=== PATIENT | female | born 1965 | race Caucasian/White ===

== ENCOUNTER 2016-12-26 21:32 | Emergency (ER) | payer OTHER ==
[~2016-12-26] VITALS: Ht 165.1 cm; Wt 73.0 kg
[~2016-12-26 21:32] MED LIST: ADAL40KI SQ; CARI350T PO; CITA20TA11 PO; CYCL100C23 PO; DIAZ10TA3 PO; DICL1TAB5 PO; LORA1TAB PO; METH2.5T PO; NICO1PAT16 TD; OXYC-245 PO; PREG150C PO; ZLP5T PO
[2016-12-26 21:47] VITALS: BP 172/89; PULSE 61; RESP 18; O2SAT 100
--- NOTE | 2016-12-26 22:10 | ED.REPORT ---
HPI-General Illness Date of Service Dec 26, 2016 ED Provider: Dr. Og Amaya M.D. The patient is a 51 year old female with a medical history including fibromyalgia, psoriatic arthritis, and guttate psoriasis who presents to the ED with left lower extremity redness and swelling onset two days ago. The patient also reports diffuse itchy and painful psoriasis, affecting her left leg as well as other areas of her body. The patient's psoriasis was controlled for many years with treatments including Humira and methotrexate prescribed by her retirement manager but she recently lost this doctor as well as her PCP and is in the process of re-establishing care. She is not currently on any prescriptions for psoriasis. The patient denies other symptoms at this time. Nursing Notes Stated Complaint: LEFT LEG EDEMA AND PSORIASIS Chief Complaint: General Complaint Nursing Notes Reviewed: Yes Allergies: Coded Allergies: codeine (Verified Allergy, Severe, 12/14/14) Scheduled Adalimumab (Humira) 40 Mg/0.8 Ml Kit 40 MG SQ every 2 weeks Carisoprodol (Soma) 350 Mg Tablet 350 MG PO TID Cephalexin (Keflex) 500 Mg Capsule 500 MG PO QID Ceramides 1,3,6-11 (Cerave) 453 Gm Cream..g. 453 GM TP BID Citalopram (Citalopram) 20 Mg Tablet 30 MG PO DAILY Clobetasol Propionate (Clobetasol Propionate) 50 Ml Solution 50 ML TP BID Cyclosporine, Modified (Cyclosporine Modified) 100 Mg Capsule 100 MG PO AM Cyclosporine, Modified (Cyclosporine Modified) 100 Mg Capsule 200 MG PO HS Diclofenac/Misoprostol 75-0.2 mg (Arthrotec 75-0.2 mg) 1 Each Tab.ir.dr 1 EACH PO BID Hydrocortisone (Hydrocortisone) 2.5 % Cream.appl 30 GM RC TID Loratadine (Claritin) 10 Mg Capsule 10 MG PO DAILY Methotrexate Sodium (Methotrexate) 2.5 Mg Tablet 10 MG PO bid weekly Nicotine 21 mg/24 hr Patch (Nicotine 21 mg/24 hr Patch) 1 Each Patch.dysq 1 EACH TD DAILY remove at night Pregabalin (Lyrica) 150 Mg Capsule 150 MG PO BID Scheduled PRN Diazepam (Diazepam) 10 Mg Tablet 10 MG PO HS PRN PRN For Anxiety Lorazepam (Lorazepam) 1 Mg Tablet 1 MG PO TID PRN PRN For Anxiety Oxycodone HCl/Acetaminophen (Percocet 10-325 mg Tablet) 1 Each Tablet 1 EACH PO 5x day PRN PRN For Pain Zolpidem (Ambien) 5 Mg Tab 5 MG PO HS PRN PRN For Insomnia General Time Seen by MD: 22:10 Chief Complaint Other (Left Lower Extremity Redness and Swelling) Hx Obtained From: Patient Arrived By: Walk-in Sudden in Onset?: No Onset Occurred: 2 days ago Symptom Duration: Since onset Location: : Leg left (And diffuse) Quality: Itching, Painful Severity: Current: Moderate Severity: Maximum: Moderate Pertinent Negative: Relieved by nothing Recent Healthcare: No recent doctor visit Similar Sx Previous: Yes Past Medical History Past Medical History Fibromyalgia Psoriatic arthritis Guttate psoriasis Depression Anxiety Past Surgical History Right shoulder Cyst removed in neck Smoking History Current Every Day Smoker Social History Alcohol Use: Denies alcohol use Ambulatory Status Independent Review of Systems + Diffuse itchy and painful psoriasis, left lower extremity redness Full Review of Systems Constitutional: Denies: Fever Respiratory: Denies: Non-productive cough, Shortness of breath GI: Denies: Diarrhea, Vomiting Musculoskeletal: Reports: Extremity swelling (Left lower extremity) Complete sys rev & neg: except as marked. Physical Exam Vital Signs Vital Signs Date Time Temp Pulse Resp B/P Pulse Ox O2 Delivery O2 Flow Rate FiO2 12/26/16 21:47 37.0 61 18 172/89 100 Room Air Initial VS: Reviewed ENT: Conjunctiva normal, No scleral icterus Neck: Supple, Full range of motion Respiratory: Breath sounds normal, Clear to auscultation, No respiratory distress Cardiovascular: Regular rate & rhythm, Heart sounds normal Neurologic: Alert, Oriented, Nonfocal Psychiatric: Mood/affect normal, Behavior normal, Normal thought content General/Constitutional: Awake, Alert, No acute distress Lower Extremity / Pelvis / MS: Full range of motion, No deformity 2+ pitting edema left leg Right leg without swelling or hazy erythema Skin: Warm, Dry Rash / Lesion Notes: Wide-spread plaque psoriasis with small patches on face and larger patches on umbilicus, back, legs, and arms - approximately 30% body surface area affected. Patient is scratching vigorously Hazy erythema on left leg, distinct from plaques, consistent with cellulitis Interpretation & Diagnostics Lab Results Interpretation Test 12/26/16 22:06 Hold Urine Received (Received) Re-Eval/Medical Decision Med Decision/Clinical Course 51-year-old with severe psoriasis involving at this point at least 25-30% of her body surface area, presents with itching and worsening psoriasis symptoms. We are obviously unable to begin her on systemic immunosuppressants, and she will have to establish with dermatology. Referred to [place] or her retirement manager also will be. She was provided with clobetasol liquid to mix intoCeraVe cream for twice a day application. Follow up with dermatology as soon as that can be arranged. Source of Hx: Old records Time of Eval: 22:25 Patient Status: Condition improved Re-Evaluation/Progress Note: Discussed with patient physical exam findings, diagnosis, and plan for discharge. Follow-up and return to the ER instructions given. Patient agrees with plan for care and all questions were addressed. Counseled Regarding: Diagnosis, Need for follow-up, When/why to return to ED Discharge & Departure Primary Impression: Psoriasis Disposition: Home Discharge Condition All VS Reviewed: Yes Condition: Improved Additional Instructions: We need to try and get your psoriasis under control, although you will need to be on disease modifying therapy again. Contact dermatology in [place] to resume therapy. Dr. Zan Tony MD, [facility] [address] [place] [id number] [id number] [place] [address] In the meantime, obtain clobetasol solution and mix a bottle of the solution into the 400 g tub of CeraVe. At the solution a few drops at a time and mix with spoon or tongue blade, then add more until you have added the entire bottle to the cream. Zan this cream so that you know it is medicated. Do not use on your face. Use only hydrocortisone on your face Apply twice daily to the affected areas. Begin Keflex four times daily. Elevate the leg whenever possible to reduce swelling. Follow-up with Dr. Leong as planned Referrals: NOPCP (PCP) Zan Tony MD, Eric R MD Scribe Attestation Portions of this note were transcribed by Margo Pina. I, Dr. Amaya, personally performed the history, physical exam, and medical decision-making; I reviewed and confirmed the accuracy of the information in the transcribed note. Signed by: Julio César Ochoa, 12/26/2016, 23:00 copies to: Zan Tony MD; Jay Leong MD, Christopher W MD Dec 26, 2016 22:10 MARGO PINA Dec 26, 2016 22:18
[2016-12-26] MEDS ORDERED: CERA453C2 TP (22:27)
[2016-12-26] MEDS ORDERED: CLOB50SO TP (22:27)
[2016-12-26] MEDS ORDERED: LORA10CA PO (22:28)
[2016-12-26] MEDS ORDERED: HYDR30CR98 RC (22:30)
[2016-12-26] MEDS ORDERED: CEPH-512 PO (22:31)
== END 2016-12-26 22:34 | disposition home or self-care (01) ==
LOC: SED 21:32
DX: L40.9 Psoriasis, unspecified (principal); F32.9 Major depressive disorder, single episode, unspecified; M79.7 Fibromyalgia; F41.9 Anxiety disorder, unspecified; F17.200 Nicotine dependence, unspecified, uncomplicated; Z88.5 Allergy status to narcotic agent